=== PATIENT | female | born 1965 | race Caucasian/White ===

== ENCOUNTER 2017-05-11 17:07 | Emergency (ER) | payer OTHER ==
[~2017-05-11] VITALS: Ht 157.5 cm; Wt 64.9 kg
[2017-05-11 17:21] VITALS: BP 145/94
== END 2017-05-11 18:04 | disposition home or self-care (01) ==
LOC: ED 17:07
DX: M77.9 Enthesopathy, unspecified (principal)

== ENCOUNTER 2017-06-11 09:11 | Emergency (ER) | payer OTHER ==
[2017-06-11 09:16] VITALS: BP 154/94
== END 2017-06-11 10:51 | disposition home or self-care (01) ==
LOC: ED 09:11
DX: M54.41 Lumbago with sciatica, right side (principal); E78.00 Pure hypercholesterolemia, unspecified
CPT/HCPCS: J3010; Q0162

== ENCOUNTER 2019-10-01 09:24 | Emergency (ER) | payer OTHER ==
[~2019-10-01] VITALS: Ht 162.6 cm; Wt 66.7 kg
[2019-10-01 09:35] VITALS: Ht 162.6 cm; Wt 66.7 kg
[2019-10-01 10:31] LABS: BASOPHIL % 0.6 % (0-2); PLATELET COUNT 302 x10^3mcL (130-400); RED CELL DISTRIBUTION WIDTH 13.8 % (11.5-14.5)
[2019-10-01 10:35] LABS: CALCIUM 9.3 mg/dL (8.5-10.1); CARBON DIOXIDE 25.8 mmol/L (21-32); CHLORIDE SERUM 102 mmol/L (98-107); CREATININE SERUM 0.5 mg/dL (0.6-1.0); GFR1 > 60 mL/min; GLUCOSE SERUM 90 mg/dL (74-106); POTASSIUM SERUM 4.1 mmol/L (3.5-5.1); SODIUM SERUM 137 mmol/L (136-145)
[2019-10-01 10:50] LABS: ALBUMIN 4.3 g/dL (3.4-5.0); ALKALINE PHOSPHATASE 54 U/L (46-116); ALT/SGPT 45 U/L (14-59); AST/SGOT 19 U/L (15-37); BILIRUBIN TOTAL 0.4 mg/dL (0.20-1.00)
[2019-10-01 11:28] VITALS: BP 142/76
== END 2019-10-01 11:28 | disposition home or self-care (01) ==
LOC: ED 09:24
PROVIDERS: Emergency Medicine
DX: J11.1 Influenza due to unidentified influenza virus with other respiratory manifestations (principal); N39.0 Urinary tract infection, site not specified
CPT/HCPCS: 36415; J1885